=== PATIENT | male | born 1935 | race Caucasian/White ===

== ENCOUNTER → 2017-02-02 | Outpatient (CLI) | payer MEDICARE ==
[~2017-02-02] MED LIST: ATROVENT INH S2.5 ML INH; ECOTRIN81 MG PO; GLUCOTROL5 MG PO; LASIX40 MG PO; LEVAQUIN TAB 5500 MG; LIPITOR TAB 2020 MG PO; LISINOPRIL5 MG; LOPRESSOR 25 MG25 MG PO; PLAVIX 75 MG TA75 MG PO; SYMBICORT 160-1 INHA; TYLENOL 325MG325 MG PO; TYLENOL W/CODEIN1 E1 PO; VENTOLIN/PROVE0.5 ML INH
== END ==
LOC: KOH-I 12:18
DX: J40 Bronchitis, not specified as acute or chronic (principal)
CPT/HCPCS: 71020